=== PATIENT | male | born 1955 | race Caucasian/White ===

== ENCOUNTER → 2018-04-25 | Outpatient (CLI) | payer MEDICARE, OTHER ==
--- NOTE | 2018-04-25 11:56 | RAD ---
Left breast ultrasound, 04/25/2018: History: Nipple pain The area of clinical concern in the left retroareolar region was carefully scanned. There is a triangular-shaped area of decreased echogenicity center directly behind the nipple in a pattern most compatible with gynecomastia. This is asymmetric compared to the left, where there is a lesser degree of retroareolar hypoechoic tissue. Bilateral mammograms, 04/25/2018: 2 views of each breast were obtained in the CC and MLO projections. CAD was utilized. The breasts are predominantly fatty in nature. There is asymmetrically increased density in the left retroareolar region compared to the right. This density is flame shaped with a pattern suggesting gynecomastia. No suspicious microcalcifications are seen. A small benign-appearing lymph node type density is seen in the right lower axillary region. IMPRESSION: Retroareolar breast asymmetry most compatible with unilateral left gynecomastia. Clinical surveillance is suggested. BI-RADS 3-probably benign findings
== END | disposition home or self-care (01) ==
LOC: US 10:22
PROVIDERS: ATTEND Physician Assistant
DX: N64.4 Mastodynia (principal)
CPT/HCPCS: 76641; 77066

== ENCOUNTER → 2019-04-26 | Outpatient (CLI) | payer MEDICARE, OTHER ==
--- NOTE | 2019-04-26 14:47 | RAD ---
DATE: 04/26/2019. EXAM: DIGITAL DIAGNOSTIC BILATERAL, BREAST LEFT. HISTORY: Persistent left breast pain. Previously diagnosed with gynecomastia one year previously. COMPARISON: 04/25/2018. This study was interpreted with the benefit of Computerized Aided Detection (CAD). FINDINGS: Breast Density: SCATTERED The breast parenchyma shows scattered fibroglandular densities. Breast parenchyma level B.. Mammographically, mild gynecomastia on the left greater than right is not clearly changed. There are no suspicious masses, microcalcifications or architectural distortion. On today's sonography, a hypoechoic subareolar region is consistent with gynecomastia. There is no suspicious mass or other correlate for tenderness. BI-RADS CATEGORY: 2 BENIGN FINDING(S). RECOMMENDED FOLLOW-UP: CLIN FOLLOW UP IMAGING CLINICALLY INDICATED. PQRS compliance statement: The patient is to follow-up as clinically indicated. Mammography is a sensitive method for finding small breast cancers, but it does not detect them all and is not a substitute for careful clinical examination. A negative mammogram does not negate a clinically suspicious finding and should not result in delay in biopsying a clinically suspicious abnormality. "Our facility is accredited by the [employer] Mammography Program."
== END | disposition home or self-care (01) ==
LOC: MAMMO 12:52
PROVIDERS: ATTEND Physician Assistant
DX: N62 Hypertrophy of breast (principal)
CPT/HCPCS: 76641; 77066

== ENCOUNTER 2020-04-15 11:54 | Emergency (ER) | payer MEDICARE, OTHER ==
[~2020-04-15] VITALS: Ht 175.3 cm; Wt 84.5 kg
--- NOTE | 2020-04-15 12:58 | PHYS DOC ---
Past History Past Medical History: Bipolar, Hypertension, Other Additional Past Medical Histor: BPH Past Surgical History: Tonsillectomy, Other Additional Past Surgical Histo: KNEE; SHOULDER; UVALA REMOVED Alcohol Use: Heavy Additional Alcohol Information: AMOUNT VARIES, STATES HE DRINKS DAILY AT TIMES; NONE TODAY General Adult EDM: Chief Complaint: OTHER COMPLAINTS HPI: HPI: 64-year-old male presents with concern for memory loss. He believes that over the last 1 month he has had significant decline in his ability remember things. He denies any changes in medications. He has not started or stopped any new medications. He denies trauma or injury. He denies any significant emotional trauma. He has been feeling otherwise well except for some occasional postprandial pain which he attributes to his gallbladder. He denies fever chills. Review of Systems: Review of Systems: Constitutional: Denies fever or chills Eyes: Denies change in visual acuity HENT: Denies nasal congestion or sore throat Respiratory: Denies cough or shortness of breath Cardiovascular: Denies chest pain or edema GI: Denies abdominal pain, nausea, vomiting, bloody stools or diarrhea : Denies dysuria Musculoskeletal: Denies back pain or joint pain Integument: Denies rash Neurologic: Memory loss. Denies headache, focal weakness or sensory changes Endocrine: Denies polyuria or polydipsia Lymphatic: Denies swollen glands Psychiatric: Denies depression or anxiety Heart Score: Risk Factors: Risk Factors: DM, Current or recent (<one month) smoker, HTN, HLP, family history of CAD, obesity. Risk Scores: Score 0 - 3: 2.5% MACE over next 6 weeks - Discharge Home Score 4 - 6: 20.3% MACE over next 6 weeks - Admit for Clinical Observation Score 7 - 10: 72.7% MACE over next 6 weeks - Early Invasive Strategies Current Medications: Current Meds: Current Medications Medications (Trade) Dose Ordered Sig/Dari Start Time Stop Time Status Last Admin Dose Admin Sodium Chloride 1,000 ml @ 1,000 mls/hr 1X ONCE 04/15/20 13:00 04/15/20 13:59 Allergies: Allergies: Allergies Coded Allergies Type Severity Reaction Last Updated Verified aripiprazole Allergy Unknown 04/15/20 Yes gabapentin Allergy Unknown 04/15/20 Yes Physical Exam: PE: Constitutional: Well developed, well nourished, no acute distress, non-toxic appearance. [] HENT: Normocephalic, atraumatic, bilateral external ears normal, oropharynx moist, no oral exudates, nose normal. [] Eyes: PERRLA, EOMI, conjunctiva normal, no discharge. [] Neck: Normal range of motion, no tenderness, supple, no stridor. [] Cardiovascular: Heart rate regular rhythm, no murmur [] Lungs & Thorax: Bilateral breath sounds clear to auscultation [] Abdomen: Bowel sounds normal, soft, no tenderness, no masses, no pulsatile m asses. [] Skin: Warm, dry, no erythema, no rash. [] Back: No tenderness, no CVA tenderness. [] Extremities: No tenderness, no cyanosis, no clubbing, ROM intact, no edema. [] Neurologic: Alert and oriented X 3, normal motor function, normal sensory function, no focal deficits noted. [] Psychologic: Affect normal, judgement normal, mood normal. [] Current Patient Data: Vital Signs: Vital Signs Date Time Temp Pulse Resp B/P (MAP) Pulse Ox O2 Delivery O2 Flow Rate FiO2 04/15/20 12:00 98.9 68 18 123/92 (102) 98 Room Air EKG: EKG: [] Radiology/Procedures: Radiology/Procedures: [] Course & Med Decision Making: Course & Med Decision Making Pertinent Labs and Imaging studies reviewed. (See chart for details) Patient's labs are unremarkable. His urinalysis is negative for infection. His CT scans show some atrophy but nothing unusual for his age. I do not see any life-threatening illnesses. His urine drug screen was positive for marijuana. I asked the patient about this and he seems to use it regularly. I suspect this could have something to do with his memory. He denies that it could have anything to do with it. I have recommended that he follow-up with neurology. I will provide contact information for this. He is stable for discharge at this time [] Arcelia Disclaimer: Arcelia Disclaimer: This electronic medical record was generated, in whole or in part, using a voice recognition dictation system. Departure Departure: Impression: Primary Impression: Memory loss Disposition: 01 DC HOME SELF CARE/HOMELESS Condition: STABLE Referrals: LEO ADAMS DO (PCP) Additional Instructions: Please call Dr. Jenkins (Neurologist) for an appointment. The phone number is [phone]. You should also ask your primary care doctor for a referral to neurology. GUANAKO CAMACHO DO Apr 15, 2020 12:58
[2020-04-15] MEDS ORDERED: IV NORMAL SALINE 1,000ML 1,000 ML IV ONE (13:00)
--- NOTE | 2020-04-15 13:17 | RAD ---
Examination: CT HEAD WO CONTRAST History: recent memory loss / Comparison/Correlation: None Findings: Axial images were obtained without contrast. Atrophy is present. No intracranial hemorrhage, midline shift, or mass effect. No depressed fracture. Partial opacification of the left maxillary sinus is present. Impression: No acute process. Electronically signed by: Leonel Márquez MD (04/15/2020 1:14 PM) [facility]
[2020-04-15 13:33] LABS: BASO # 0.1 x10^3/uL (0.0-0.2); BASO % 1 % (0-3); EOS # 0.5 x10^3/uL (0.0-0.7); EOS % 5 % (0-3); HEMOGLOBIN 15.4 g/dL (13.0-17.5); LYMPH # 3.2 x10^3/uL (1.0-4.8); LYMPH % 31 % (24-48); MEAN CORPUSCULAR HEMOGLOBIN 33 pg (25-35); MEAN CORPUSCULAR HGB CONC 34 g/dL (31-37); MEAN CORPUSCULAR VOLUME 99 fL (79-100); MONO # 0.8 x10^3/uL (0.0-1.1); MONO % 7 % (0-9); NEUT # 5.7 x10^3uL (1.8-7.7); NEUT % 56 % (31-73); PLATELET COUNT 307 x10^3/uL (140-400); RED BLOOD COUNT 4.67 x10^6/uL (4.30-5.70); RED CELL DISTRIBUTION WIDTH 14.2 % (11.5-14.5); WHITE BLOOD COUNT 10.2 x10^3/uL (4.0-11.0)
[2020-04-15 13:46] LABS: CALCIUM 8.9 mg/dL (8.5-10.1); CREATININE 0.9 mg/dL (0.7-1.3); GFR 84.4
[2020-04-15 13:55] LABS: ALBUMIN 3.8 g/dL (3.4-5.0); TOTAL BILIRUBIN 0.4 mg/dL (0.2-1.0); TOTAL PROTEIN 7.5 g/dL (6.4-8.2)
[2020-04-15 15:00] LABS: BARBITURATES NEG (NEG); BENZODIAZEPINES NEG (NEG); CANNABINOIDS POS (NEG); COCAINE NEG (NEG); METHADONE NEG (NEG); OPIATES NEG (NEG); PHENCYCLIDINE NEG (NEG)
[2020-04-15 15:01] LABS: AMPHETAMINE/METHAMPHETAMINE NEG (NEG)
[2020-04-15 15:02] LABS: COLOR,URINE COLORLESS
[2020-04-15 15:03] LABS: BACTERIA,URINE 0 /HPF (0-FEW); BILIRUBIN,URINE NEG (NEG); CLARITY,URINE CLEAR; GLUCOSE,URINE NEG (NEG); NITRITE,URINE NEG (NEG); RBC,URINE 0 /HPF (0-2); UROBILINOGEN,URINE 0.2 mg/dL (0.2 mg/dL); WBC,URINE 0 /HPF (0-4)
[2020-04-15 15:22] VITALS: BP 106/89
== END 2020-04-15 15:27 | disposition home or self-care (01) ==
LOC: ER 11:54
DX: R41.3 Other amnesia (principal); I10 Essential (primary) hypertension; F31.9 Bipolar disorder, unspecified; F10.20 Alcohol dependence, uncomplicated; Z88.8 Allergy status to other drugs, medicaments and biological substances; Y90.0 Blood alcohol level of less than 20 mg/100 ml
CPT/HCPCS: 36415; 70450; 80053; 80307; 81001; 85025; 96360; 96361; 99285; J7030

== ENCOUNTER → 2020-04-19 | Outpatient (CLI) | payer MEDICARE, OTHER ==
[2020-04-15 15:22] VITALS: BP 106/89
--- NOTE | 2020-04-19 10:40 | RAD ---
Carotid doppler ultrasound History: Slurred speech, memory loss Multiple grayscale, color, and duplex spectral analysis waveform sonographic images were acquired of the carotid, subclavian, and vertebral arteries. Comparison: None Findings: RIGHT: PSV cm/sec EDV cm/sec Common carotid artery 79 22 Maximal internal carotid artery 71 24 External carotid artery 76 Vertebral artery 47 ICA/CCA ratio 0.9 LEFT: PSV cm/sec EDV cm/sec Common carotid artery 96 22 Maximum internal carotid artery 83 29 External carotid artery 88 Vertebral artery 38 ICA/CCA ratio 0.86 Velocities used to determine stenosis are known to correlate with NASCET angiographic criteria. There is antegrade flow in the bilateral vertebral arteries. There is minimal plaque of the bilateral carotid bulbs and proximal internal carotid arteries. Impression: 1. There is no evidence of a hemodynamically significant stenosis. There is mild bilateral plaque. Electronically signed by: Dylan Cruz MD (04/19/2020 10:37 AM) [facility]
== END ==
LOC: US 09:05
PROVIDERS: ATTEND Internal Medicine
DX: I65.23 Occlusion and stenosis of bilateral carotid arteries (principal); R41.3 Other amnesia; R47.81 Slurred speech
CPT/HCPCS: 93880

== ENCOUNTER 2020-05-17 19:45 | Emergency (ER) | payer MEDICARE, OTHER ==
[~2020-05-17] VITALS: Ht 185.4 cm; Wt 79.5 kg
[2020-05-17] MEDS ORDERED: MVI, ADULT NO.4 WITH VIT K 10 ML, FOLIC ACID INJ 1 MG, THIAMINE INJ 100 MG in IV NORMAL... IV ONE (20:30)
[2020-05-17 20:41] LABS: BASO # 0.1 x10^3/uL (0.0-0.2); BASO % 1 % (0-3); EOS # 0.3 x10^3/uL (0.0-0.7); EOS % 3 % (0-3); HEMATOCRIT 45.3 % (39.0-53.0); LYMPH # 2.7 x10^3/uL (1.0-4.8); LYMPH % 24 % (24-48); MEAN CORPUSCULAR HEMOGLOBIN 33 pg (25-35); MEAN CORPUSCULAR HGB CONC 33 g/dL (31-37); MEAN CORPUSCULAR VOLUME 99 fL (79-100); MONO # 0.9 x10^3/uL (0.0-1.1); MONO % 8 % (0-9); NEUT # 7.4 x10^3uL (1.8-7.7); NEUT % 65 % (31-73); PLATELET COUNT 306 x10^3/uL (140-400); RED BLOOD COUNT 4.56 x10^6/uL (4.30-5.70); RED CELL DISTRIBUTION WIDTH 13.2 % (11.5-14.5); WHITE BLOOD COUNT 11.4 x10^3/uL (4.0-11.0)
[2020-05-17 20:54] LABS: ALBUMIN 3.9 g/dL (3.4-5.0); CALCIUM 9.1 mg/dL (8.5-10.1); TOTAL PROTEIN 7.7 g/dL (6.4-8.2)
[2020-05-17 20:55] LABS: CREATININE 0.9 mg/dL (0.7-1.3); GFR 84.4; POTASSIUM 3.7 mmol/L (3.5-5.1); TOTAL BILIRUBIN 0.5 mg/dL (0.2-1.0)
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
[2020-05-17 22:30] VITALS: BP 140/70
[2020-05-17 22:40] LABS: BARBITURATES NEG (NEG); BENZODIAZEPINES NEG (NEG); CANNABINOIDS POS (NEG); COCAINE NEG (NEG); METHADONE NEG (NEG); OPIATES NEG (NEG); PHENCYCLIDINE NEG (NEG)
[2020-05-17 22:51] LABS: AMPHETAMINE/METHAMPHETAMINE NEG (NEG)
[2020-05-17 23:27] LABS: BILIRUBIN,URINE NEG (NEG); CLARITY,URINE HAZY; COLOR,URINE YELLOW; GLUCOSE,URINE NEG (NEG); NITRITE,URINE NEG (NEG); RBC,URINE OCC /HPF (0-2); UROBILINOGEN,URINE 0.2 mg/dL (0.2 mg/dL)
[2020-05-17 23:28] LABS: BACTERIA,URINE MOD /HPF (0-FEW); SQUAMOUS EPITHELIAL CELL,UR FEW /LPF
== END 2020-05-17 23:06 | disposition home or self-care (01) ==
LOC: ER 19:45
DX: F12.10 Cannabis abuse, uncomplicated (principal); M25.512 Pain in left shoulder; M54.2 Cervicalgia; F20.9 Schizophrenia, unspecified; F31.9 Bipolar disorder, unspecified; Z88.8 Allergy status to other drugs, medicaments and biological substances; V89.2XXA Person injured in unspecified motor-vehicle accident, traffic, initial encounter; Y93.I9 Activity, other involving external motion; Y92.488 Other paved roadways as the place of occurrence of the external cause; Y99.8 Other external cause status
CPT/HCPCS: 36415; 70450; 72125; 73030; 80053; 80307; 81001; 85025; 87077; 87086; 96365; 99285; G0480; J7030

== ENCOUNTER 2020-05-18 09:49 | Emergency (ER) | payer MEDICARE, OTHER ==
[~2020-05-18] VITALS: Ht 175.3 cm; Wt 79.9 kg
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
[2020-05-18 10:37] VITALS: BP 168/84
== END 2020-05-18 10:50 | disposition home or self-care (01) ==
LOC: ER 09:49
DX: S80.02XA Contusion of left knee, initial encounter (principal); I10 Essential (primary) hypertension; Z88.8 Allergy status to other drugs, medicaments and biological substances; V89.2XXA Person injured in unspecified motor-vehicle accident, traffic, initial encounter; Y93.89 Activity, other specified; Y92.89 Other specified places as the place of occurrence of the external cause; Y99.8 Other external cause status
CPT/HCPCS: 99281

== ENCOUNTER 2020-05-19 04:41 | Emergency (ER) | payer MEDICARE, OTHER ==
[~2020-05-19] VITALS: Ht 175.3 cm; Wt 81.3 kg
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
[2020-05-19] MEDS ORDERED: IV NORMAL SALINE 1,000ML 1,000 ML IV ONE (05:15)
--- NOTE | 2020-05-19 05:19 | EKG ---
[address] [address] Test Date: 2020-05-19 Test Time: 05:10:42 Pat Name: RUPAL BURKETT Department: Room: Gender: M Veneer Sample Maker: 2G : [id number] Requested By: GUANAKO CAMACHO Order Number: [id number] Reading MD: Measurements Intervals [place] Rate: 78 P: 66 WV: 154 QRS: -67 QRSD: 114 T: 67 QT: 386 QTc: 444 Interpretive Statements SINUS RHYTHM ABNORMAL LEFT AXIS DEVIATION LEFT ANTERIOR FASCICULAR BLOCK T ABNORMALITY IN HIGH LATERAL LEADS ABNORMAL ECG RI6.02 No previous ECG available for comparison
[2020-05-19 05:56] LABS: CALCIUM 9.5 mg/dL (8.5-10.1); CREATININE 1.1 mg/dL (0.7-1.3); POTASSIUM 3.5 mmol/L (3.5-5.1)
[2020-05-19 06:02] LABS: ALBUMIN 3.7 g/dL (3.4-5.0); TOTAL BILIRUBIN 0.3 mg/dL (0.2-1.0); TOTAL PROTEIN 7.3 g/dL (6.4-8.2)
[2020-05-19 06:05] LABS: BASO # 0.1 x10^3/uL (0.0-0.2); BASO % 1 % (0-3); EOS % 0 % (0-3); HEMOGLOBIN 14.8 g/dL (13.0-17.5); LYMPH # 1.2 x10^3/uL (1.0-4.8); LYMPH % 9 % (24-48); MEAN CORPUSCULAR HEMOGLOBIN 33 pg (25-35); MEAN CORPUSCULAR HGB CONC 33 g/dL (31-37); MEAN CORPUSCULAR VOLUME 99 fL (79-100); MONO # 0.7 x10^3/uL (0.0-1.1); MONO % 5 % (0-9); NEUT # 12.2 x10^3uL (1.8-7.7); NEUT % 86 % (31-73); PLATELET COUNT 305 x10^3/uL (140-400); RED BLOOD COUNT 4.54 x10^6/uL (4.30-5.70); RED CELL DISTRIBUTION WIDTH 13.1 % (11.5-14.5); WHITE BLOOD COUNT 14.3 x10^3/uL (4.0-11.0)
[2020-05-19 06:32] LABS: ACETAMIN < 2.0 mcg/mL (10-30); SALIC 3.8 mg/dL (2.8-20.0)
[2020-05-19 06:33] LABS: ETHANOL < 10 mg/dL (0-10)
[2020-05-19] MEDS ORDERED: diphenhydrAMINE 50 MG/ML VIAL IM ONE (08:15)
[2020-05-19] MEDS ORDERED: OLANZapine IM 10 MG VIAL. IM ONE (08:15)
[2020-05-19] MEDS ORDERED: HALOPERIDOL LACT 5 MG/ML VIAL. IVP ONE ×2 (09:45→13:45)
[2020-05-19] MEDS ORDERED: diphenhydrAMINE 50 MG/ML VIAL ONE (13:44)
[2020-05-19] MEDS ORDERED: diphenhydrAMINE 50 MG/ML VIAL IVP ONE (13:45)
[2020-05-19 18:27] LABS: BARBITURATES NEG (NEG); BENZODIAZEPINES NEG (NEG); CANNABINOIDS POS (NEG); COCAINE NEG (NEG); METHADONE NEG (NEG); OPIATES NEG (NEG); PHENCYCLIDINE NEG (NEG)
[2020-05-19 18:29] LABS: AMPHETAMINE/METHAMPHETAMINE NEG (NEG)
[2020-05-19 18:35] LABS: BILIRUBIN,URINE SMALL (NEG); CLARITY,URINE HAZY; COLOR,URINE AMBER; GLUCOSE,URINE NEG (NEG)
[2020-05-19 18:36] LABS: NITRITE,URINE POS (NEG); UROBILINOGEN,URINE 0.2 mg/dL (0.2 mg/dL)
[2020-05-19 18:41] LABS: BACTERIA,URINE MOD /HPF (0-FEW); SQUAMOUS EPITHELIAL CELL,UR OCC /LPF
[2020-05-19] MEDS ORDERED: HALOPERIDOL LACT 5 MG/ML VIAL. IM ONE (19:30)
[2020-05-19] MEDS ORDERED: cefTRIAXone IM 1 GM VIAL IM ONE (21:00)
[2020-05-20] MEDS ORDERED: HALOPERIDOL LACT 5 MG/ML VIAL. IM ONE ×2 (06:15→17:15)
[2020-05-20] MEDS ORDERED: LORazepam 1 MG TABLET PO ONE ×3 (11:45→18:00)
[2020-05-20] MEDS ORDERED: OLANZapine 2.5 MG TABLET PO ONE (11:45)
[2020-05-20] MEDS ORDERED: ACETAMINOPHEN 500 MG TABLET PO ONE (12:00)
[2020-05-20] MEDS ORDERED: HALOPERIDOL LACT 5 MG/ML VIAL. ONE (17:10)
[2020-05-20] MEDS ORDERED: cefTRIAXone IM 1 GM VIAL IM ONE (17:30)
[2020-05-20] MEDS ORDERED: CEPHALEXIN 250 MG CAPSULE PO ONE (17:45)
[2020-05-20] MEDS ORDERED: CEPHALEXIN 250 MG CAPSULE PO SCH (17:45)
[2020-05-20] MEDS ORDERED: hydrOXYzine HCL 25 MG TABLET PO ONE (22:45)
[2020-05-21] MEDS ORDERED: HALOPERIDOL LACT 5 MG/ML VIAL. IM ONE ×2 (02:45→07:45)
[2020-05-21] MEDS ORDERED: LORazepam 1 MG TABLET PO ONE ×3 (02:45→17:45)
[2020-05-21] MEDS ORDERED: OLANZapine 2.5 MG TABLET PO ONE (15:45)
[2020-05-22] MEDS ORDERED: HALOPERIDOL 5 MG TABLET PO ONE (01:15)
[2020-05-22] MEDS ORDERED: diphenhydrAMINE HCL 25 MG CAPSULE PO ONE (01:15)
[2020-05-22] MEDS ORDERED: LORazepam 1 MG TABLET PO ONE (02:30)
[2020-05-22] MEDS ORDERED: FOSFOMYCIN TROMETHAMINE 3 GM PACKET PO ONE (07:00)
[2020-05-22 07:46] VITALS: BP 120/80
== END 2020-05-22 11:26 ==
LOC: ER 04:41
DX: T69.8XXA Other specified effects of reduced temperature, initial encounter (principal); N30.01 Acute cystitis with hematuria; Z20.818 Contact with and (suspected) exposure to other bacterial communicable diseases; F10.229 Alcohol dependence with intoxication, unspecified; I10 Essential (primary) hypertension; Z90.89 Acquired absence of other organs; Z98.890 Other specified postprocedural states; Z79.899 Other long term (current) drug therapy; X58.XXXA Exposure to other specified factors, initial encounter; Y93.89 Activity, other specified; Y92.89 Other specified places as the place of occurrence of the external cause; Y99.8 Other external cause status
CPT/HCPCS: 36415; 80053; 80307; 80329; 81001; 83735; 84484; 85025; 87077; 87086; 87426; 93005; 96361; 96372; 96374; 96375; 99285; G0480; J0696; J1200; J1630; J2060; J7030; Q0163; U0003

== ENCOUNTER 2020-08-14 23:06 | Emergency (ER) | payer MEDICARE, OTHER ==
[~2020-08-14] VITALS: Ht 175.3 cm; Wt 79.0 kg
--- NOTE | 2020-08-14 23:27 | PHYS DOC ---
Past History Past Medical History: Hypertension Additional Past Medical Histor: BPH Past Surgical History: Tonsillectomy, Other Additional Past Surgical Histo: LEFT KNEE Alcohol Use: Sober Adult General Chief Complaint Chief Complaint: ANXIETY/PANIC ATTACK HPI HPI Patient is a 65-year-old male who presents with a chief complaint of anxiety attack. States he was at home watching [place] retractors on TV just before coming in to the ED about an hour ago and started getting angry thinking about the stressors in his life and then started cussing at the television. States he started having an anxiety attack, feeling scared and anxious like he wanted to just start running. States that he has anxiety attacks frequently and does have Klonopin at home but forgot to take it. Denies any recent travel, illnesses, fevers, chest pain, shortness of breath, abdominal pain, nausea, vomiting. Denies any known ill contacts, Covid/flu symptoms. States he is eating and drinking normally for him. States he is taking all of his medications as prescribed. States he smokes an occasional marijuana but does not do any other drugs. Review of Systems Review of Systems Review of systems otherwise unremarkable except noted in HPI Allergies Allergies Allergies Coded Allergies Type Severity Reaction Last Updated Verified aripiprazole Allergy Unknown 04/15/20 Yes gabapentin Allergy Unknown 04/15/20 Yes Physical Exam Physical Exam Constitutional: Well developed, well nourished, no acute distress, non-toxic appearance. [] HENT: Normocephalic, atraumatic, oropharynx moist, no oral exudates, Eyes: conjunctiva normal, no discharge. [] Neck: Normal range of motion, Cardiovascular:Heart rate regular rhythm, no murmur [] Lungs & Thorax: Bilateral breath sounds clear to auscultation [] Abdomen: soft, no tenderness, Skin: Warm, dry, no erythema, no rash. [] Neurologic: Alert and oriented X 3, normal motor function, normal sensory function, no focal deficits noted. [] Psychologic: Patient cooperative but does appear anxious. States his anxiety attack is getting better after arriving to the emergency department. Denies SI, HI, hallucinations. EKG EKG Rate of 96, QRS of 118, QTc of 441, no new STEMI. EKG abnormal however the with probable old damage. [] Radiology/Procedures Radiology/Procedures [] Heart Score Risk Factors: Risk Factors: DM, Current or recent (<one month) smoker, HTN, HLP, family history of CAD, obesity. Risk Scores: Risk Factors: DM, Current or recent (<one month) smoker, HTN, HLP, family history of CAD, obesity. Course & Med Decision Making Course & Med Decision Making Patient is a 65-year-old male who presents with a chief complaint of anxiety attack Vital signs not concerning. Physical exam noted above. EKG noted above, which is abnormal with most likely previous damage. Patient states that approximately 10 years ago he had some stents placed but has had no trouble since then. Denies any lightheadedness, fatigue, chest pain, shortness of breath, bilateral arm pain, neck pain, abdominal pain, nausea, vomiting. Denies any recent dyspnea on exertion, orthopnea, PND or edema. States that up until his anxiety attack he felt absolutely normal. Given home dose of Klonopin. On reassessment patient stated he was feeling much better, and anxiety tach had resolved. Denies any new symptoms and was very appreciative. Stated he was gilbert dy to be discharged home. Offered observation in the emergency department for repeat EKG and troponin, but patient stated he felt fine and was ready to go home and go to bed. Advised that if he indeed was having some cardiac issues this could lead to significant morbidity and mortality. Patient was polite, but stated he was ready to go home and was ago stay in the emergency department any longer as he was tired. Politely asked for us to call him a cab. Discussed taking all his medications at home as prescribed. Advised to follow- up first thing tomorrow with his primary care physician to discuss his ED visit and need for follow-up visit to discuss continued evaluation and treatment of anxiety. Advised to come back to the ED immediately with any new or concerning symptoms. Patient very grateful, verbalized understanding and agreed with plan of discharge. [] Dragon Disclaimer Dragon Disclaimer This electronic medical record was generated, in whole or in part, using a voice recognition dictation system. Departure Departure: Impression: Primary Impression: Anxiety attack Disposition: 01 DC HOME SELF CARE/HOMELESS Condition: GOOD Referrals: LEO ADAMS DO (PCP) Patient Instructions: Anxiety and Panic Attacks Additional Instructions: Please read all the attached information on your diagnosis. Please continue to take all your medications as prescribed. Please call your primary care physician first thing in the morning to update on ED visit and set up a follow- up visit to discuss continued evaluation and treatment of anxiety. Please come back to the ED with new or concerning symptoms. SOLANGE CLEMENS MD Aug 14, 2020 23:27
[2020-08-14] MEDS ORDERED: clonazePAM 1 MG TABLET PO ONE (23:45)
[2020-08-14 23:59] VITALS: BP 117/86
--- NOTE | 2020-08-15 06:29 | EKG ---
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
== END 2020-08-15 00:14 | disposition home or self-care (01) ==
LOC: ER 23:06
DX: F41.9 Anxiety disorder, unspecified (principal); I10 Essential (primary) hypertension; Z88.8 Allergy status to other drugs, medicaments and biological substances
CPT/HCPCS: 93005; 99283

== ENCOUNTER 2020-08-15 04:06 | Emergency (ER) | payer OTHER, MEDICARE ==
[~2020-08-15] VITALS: Ht 175.3 cm; Wt 79.0 kg
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
[2020-08-15] MEDS ORDERED: ACETAMINOPHEN 500 MG TABLET PO ONE ×2 (04:45→05:28)
[2020-08-15 05:05] LABS: BASO # 0.1 x10^3/uL (0.0-0.2); BASO % 1 % (0-3); EOS # 0.1 x10^3/uL (0.0-0.7); EOS % 0 % (0-3); HEMATOCRIT 42.2 % (39.0-53.0); HEMOGLOBIN 14.1 g/dL (13.0-17.5); LYMPH # 1.1 x10^3/uL (1.0-4.8); LYMPH % 8 % (24-48); MEAN CORPUSCULAR HEMOGLOBIN 32 pg (25-35); MEAN CORPUSCULAR HGB CONC 34 g/dL (31-37); MEAN CORPUSCULAR VOLUME 96 fL (79-100); MONO # 0.8 x10^3/uL (0.0-1.1); MONO % 6 % (0-9); NEUT # 12.5 x10^3uL (1.8-7.7); NEUT % 86 % (31-73); PLATELET COUNT 280 x10^3/uL (140-400); RED BLOOD COUNT 4.38 x10^6/uL (4.30-5.70); RED CELL DISTRIBUTION WIDTH 14.4 % (11.5-14.5); WHITE BLOOD COUNT 14.6 x10^3/uL (4.0-11.0)
[2020-08-15 05:11] LABS: CALCIUM 8.7 mg/dL (8.5-10.1); CREATININE 0.9 mg/dL (0.7-1.3); GFR 84.2
[2020-08-15 05:16] LABS: BARBITURATES NEG (NEG); BENZODIAZEPINES NEG (NEG); CANNABINOIDS POS (NEG); COCAINE NEG (NEG); METHADONE NEG (NEG); OPIATES NEG (NEG); PHENCYCLIDINE NEG (NEG)
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
[2020-08-15 05:21] LABS: ALBUMIN 3.6 g/dL (3.4-5.0); ALBUMIN/GLOBULIN RATIO 1.1 (1.0-1.7); SALIC < 2.8 mg/dL (2.8-20.0); TOTAL BILIRUBIN 0.3 mg/dL (0.2-1.0); TOTAL PROTEIN 6.9 g/dL (6.4-8.2)
[2020-08-15 05:22] LABS: ACETAMIN < 2.0 mcg/mL (10-30); AMPHETAMINE/METHAMPHETAMINE NEG (NEG)
[2020-08-15 05:27] LABS: BILIRUBIN,URINE NEG (NEG); CLARITY,URINE CLEAR; COLOR,URINE AMBER; GLUCOSE,URINE NEG (NEG); NITRITE,URINE NEG (NEG); UROBILINOGEN,URINE 0.2 mg/dL (0.2 mg/dL)
[2020-08-15 05:28] LABS: BACTERIA,URINE 0 /HPF (0-FEW); WBC,URINE 0 /HPF (0-4)
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
--- NOTE | 2020-08-15 05:38 | EKG ---
[address] [address] Test Date: 2020-08-15 Test Time: 05:25:51 Pat Name: RUPAL BURKETT Department: Room: Gender: M Automation Controls Expert: CHERYL : 1955 Requested By: SOLANGE CLEMENS Order Number: [id number] Reading MD: Measurements Intervals [place] Rate: 90 P: 62 SD: 148 QRS: -62 QRSD: 112 T: 54 QT: 358 QTc: 442 Interpretive Statements SINUS RHYTHM ABNORMAL LEFT AXIS DEVIATION R-S TRANSITION ZONE IN V LEADS DISPLACED TO THE LEFT LEFT ANTERIOR FASCICULAR BLOCK ABNORMAL ECG RI6.02 No previous ECG available for comparison
[2020-08-15 06:00] VITALS: BP 106/60
[2020-08-15] MEDS ORDERED: NALOXONE 0.4 MG/ML VIAL. IV ONE (06:00)
[2020-08-15] MEDS ORDERED: FLUMAZENIL 0.5 MG/5 ML VIAL. IV ONE (06:30)
== END 2020-08-15 10:38 | disposition home or self-care (01) ==
LOC: ER 04:06
DX: G89.11 Acute pain due to trauma (principal); F41.9 Anxiety disorder, unspecified; F32.9 Major depressive disorder, single episode, unspecified; F20.9 Schizophrenia, unspecified; Z98.890 Other specified postprocedural states; V49.88XA Car occupant (driver) (passenger) injured in other specified transport accidents, initial encounter; Y93.89 Activity, other specified; Y92.89 Other specified places as the place of occurrence of the external cause; Y99.8 Other external cause status
CPT/HCPCS: 36415; 51702; 70450; 72125; 73030; 80053; 80307; 80329; 81001; 84484; 85025; 93005; 96374; 99285; G0480; J2310

== ENCOUNTER 2020-09-15 12:03 | Emergency (ER) | payer MEDICARE, OTHER ==
[~2020-09-15] VITALS: Ht 175.3 cm; Wt 79.0 kg
[2020-09-15 12:05] VITALS: BP 140/92
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
[2020-09-15 12:45] LABS: BASO # 0.1 x10^3/uL (0.0-0.2); BASO % 1 % (0-3); EOS # 0.1 x10^3/uL (0.0-0.7); EOS % 2 % (0-3); HEMATOCRIT 42.2 % (39.0-53.0); HEMOGLOBIN 14.3 g/dL (13.0-17.5); LYMPH # 2.1 x10^3/uL (1.0-4.8); LYMPH % 23 % (24-48); MEAN CORPUSCULAR HEMOGLOBIN 32 pg (25-35); MEAN CORPUSCULAR HGB CONC 34 g/dL (31-37); MEAN CORPUSCULAR VOLUME 94 fL (79-100); MONO # 0.7 x10^3/uL (0.0-1.1); MONO % 8 % (0-9); NEUT % 67 % (31-73); PLATELET COUNT 219 x10^3/uL (140-400); RED BLOOD COUNT 4.48 x10^6/uL (4.30-5.70); WHITE BLOOD COUNT 8.9 x10^3/uL (4.0-11.0)
[2020-09-15 12:53] LABS: CALCIUM 8.7 mg/dL (8.5-10.1); CREATININE 0.8 mg/dL (0.7-1.3); GFR 96.4; POTASSIUM 3.9 mmol/L (3.5-5.1)
[2020-09-15 12:59] LABS: ALBUMIN 3.5 g/dL (3.4-5.0); TOTAL BILIRUBIN 0.3 mg/dL (0.2-1.0); TOTAL PROTEIN 7.1 g/dL (6.4-8.2)
[2020-09-15 13:04] LABS: ACETAMIN < 2.0 mcg/mL (10-30); ETHANOL < 10 mg/dL (0-10); SALIC < 2.8 mg/dL (2.8-20.0)
[2020-09-15] MEDS ORDERED: DIVALPROEX SODIUM 125 MG TABLET.DR. PO ONE (13:45)
[2020-09-15 13:58] LABS: BARBITURATES NEG (NEG); BENZODIAZEPINES NEG (NEG); CANNABINOIDS NEG (NEG); COCAINE NEG (NEG); METHADONE NEG (NEG); OPIATES NEG (NEG); PHENCYCLIDINE NEG (NEG)
[2020-09-15 14:01] LABS: BACTERIA,URINE 0 /HPF (0-FEW); BILIRUBIN,URINE NEG (NEG); CLARITY,URINE CLEAR; COLOR,URINE YELLOW; GLUCOSE,URINE NEG (NEG); NITRITE,URINE NEG (NEG); SQUAMOUS EPITHELIAL CELL,UR FEW /LPF; UROBILINOGEN,URINE 0.2 mg/dL (0.2 mg/dL)
[2020-09-15 14:12] LABS: AMPHETAMINE/METHAMPHETAMINE NEG (NEG)
== END 2020-09-15 14:01 | disposition home or self-care (01) ==
LOC: ER 12:03
DX: F32.9 Major depressive disorder, single episode, unspecified (principal); F41.9 Anxiety disorder, unspecified; F20.9 Schizophrenia, unspecified; F17.200 Nicotine dependence, unspecified, uncomplicated; F10.20 Alcohol dependence, uncomplicated; Y90.9 Presence of alcohol in blood, level not specified; Z88.8 Allergy status to other drugs, medicaments and biological substances
CPT/HCPCS: 36415; 80053; 80307; 80329; 81001; 85025; 99284; G0480

== ENCOUNTER 2020-09-17 10:10 | Emergency (ER) | payer MEDICARE ==
[~2020-09-17] VITALS: Ht 175.3 cm; Wt 80.2 kg
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
[2020-09-17 10:57] LABS: BASO % 1 % (0-3); EOS # 0.1 x10^3/uL (0.0-0.7); EOS % 2 % (0-3); HEMATOCRIT 41.2 % (39.0-53.0); HEMOGLOBIN 13.9 g/dL (13.0-17.5); LYMPH # 1.9 x10^3/uL (1.0-4.8); LYMPH % 24 % (24-48); MEAN CORPUSCULAR HEMOGLOBIN 32 pg (25-35); MEAN CORPUSCULAR HGB CONC 34 g/dL (31-37); MEAN CORPUSCULAR VOLUME 95 fL (79-100); MONO # 0.5 x10^3/uL (0.0-1.1); MONO % 7 % (0-9); NEUT # 5.1 x10^3uL (1.8-7.7); NEUT % 67 % (31-73); PLATELET COUNT 237 x10^3/uL (140-400); RED BLOOD COUNT 4.35 x10^6/uL (4.30-5.70); RED CELL DISTRIBUTION WIDTH 14.1 % (11.5-14.5); WHITE BLOOD COUNT 7.7 x10^3/uL (4.0-11.0)
[2020-09-17 11:12] LABS: CALCIUM 8.4 mg/dL (8.5-10.1); CREATININE 0.8 mg/dL (0.7-1.3); GFR 96.4; POTASSIUM 3.5 mmol/L (3.5-5.1)
[2020-09-17 11:18] LABS: ACETAMIN < 2.0 mcg/mL (10-30); ETHANOL < 10 mg/dL (0-10); SALIC < 2.8 mg/dL (2.8-20.0)
[2020-09-17 11:26] LABS: ALBUMIN 3.3 g/dL (3.4-5.0); ALBUMIN/GLOBULIN RATIO 0.9 (1.0-1.7); TOTAL BILIRUBIN 0.3 mg/dL (0.2-1.0); TOTAL PROTEIN 6.9 g/dL (6.4-8.2)
[2020-09-17] MEDS ORDERED: LORazepam 1 MG TABLET PO PRN (12:15)
--- NOTE | 2020-09-17 12:15 | EKG ---
[address] [address] Test Date: 2020-09-17 Test Time: 10:24:37 Pat Name: RUPAL BURKETT Department: Room: Gender: M Dirt Contractor: ANAHY : 1955 Requested By: ENDER CAMP Order Number: [id number] Reading MD: Measurements Intervals [place] Rate: 80 P: 48 NM: 146 QRS: -62 QRSD: 112 T: 69 QT: 360 QTc: 419 Interpretive Statements SINUS RHYTHM ABNORMAL LEFT AXIS DEVIATION R-S TRANSITION ZONE IN V LEADS DISPLACED TO THE LEFT LEFT ANTERIOR FASCICULAR BLOCK T ABNORMALITY IN HIGH LATERAL LEADS ABNORMAL ECG RI6.02 No previous ECG available for comparison
[2020-09-17 12:26] LABS: BARBITURATES NEG (NEG); BENZODIAZEPINES NEG (NEG); CANNABINOIDS NEG (NEG); COCAINE NEG (NEG); METHADONE NEG (NEG); OPIATES NEG (NEG); PHENCYCLIDINE NEG (NEG)
[2020-09-17 12:31] LABS: BACTERIA,URINE 0 /HPF (0-FEW); BILIRUBIN,URINE NEG (NEG); CLARITY,URINE CLEAR; COLOR,URINE YELLOW; GLUCOSE,URINE NEG (NEG); NITRITE,URINE NEG (NEG); RBC,URINE OCC /HPF (0-2); SQUAMOUS EPITHELIAL CELL,UR OCC /LPF; UROBILINOGEN,URINE 0.2 mg/dL (0.2 mg/dL); WBC,URINE OCC /HPF (0-4)
[2020-09-17 12:47] LABS: AMPHETAMINE/METHAMPHETAMINE NEG (NEG)
[2020-09-17 15:21] VITALS: BP 128/79
== END 2020-09-17 15:25 | disposition home or self-care (01) ==
LOC: ER 10:10
DX: F20.0 Paranoid schizophrenia (principal); F41.9 Anxiety disorder, unspecified; F32.9 Major depressive disorder, single episode, unspecified; F20.9 Schizophrenia, unspecified; Z88.8 Allergy status to other drugs, medicaments and biological substances
CPT/HCPCS: 36415; 80053; 80307; 81001; 83605; 84484; 85025; 93005; 99284; G0480; 80329

== ENCOUNTER 2020-09-19 20:58 | Emergency (ER) | payer MEDICARE ==
[~2020-09-19] VITALS: Ht 175.3 cm; Wt 80.2 kg
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
[2020-09-19 22:08] LABS: BASO % 1 % (0-3); EOS # 0.2 x10^3/uL (0.0-0.7); EOS % 2 % (0-3); HEMATOCRIT 39.4 % (39.0-53.0); HEMOGLOBIN 13.3 g/dL (13.0-17.5); LYMPH # 3.1 x10^3/uL (1.0-4.8); LYMPH % 36 % (24-48); MEAN CORPUSCULAR HEMOGLOBIN 32 pg (25-35); MEAN CORPUSCULAR HGB CONC 34 g/dL (31-37); MEAN CORPUSCULAR VOLUME 95 fL (79-100); MONO # 0.7 x10^3/uL (0.0-1.1); MONO % 8 % (0-9); NEUT # 4.6 x10^3uL (1.8-7.7); NEUT % 53 % (31-73); PLATELET COUNT 257 x10^3/uL (140-400); RED BLOOD COUNT 4.15 x10^6/uL (4.30-5.70); RED CELL DISTRIBUTION WIDTH 13.9 % (11.5-14.5); WHITE BLOOD COUNT 8.6 x10^3/uL (4.0-11.0)
[2020-09-19 22:09] LABS: CALCIUM 8.7 mg/dL (8.5-10.1); CREATININE 0.9 mg/dL (0.7-1.3); GFR 84.2; POTASSIUM 3.6 mmol/L (3.5-5.1)
[2020-09-19 22:16] LABS: ACETAMIN < 2.0 mcg/mL (10-30); ALBUMIN 3.3 g/dL (3.4-5.0); ALBUMIN/GLOBULIN RATIO 0.9 (1.0-1.7); TOTAL BILIRUBIN 0.2 mg/dL (0.2-1.0); TOTAL PROTEIN 6.9 g/dL (6.4-8.2)
[2020-09-19 22:17] LABS: ETHANOL < 10 mg/dL (0-10); SALIC < 2.8 mg/dL (2.8-20.0)
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
[2020-09-19 23:20] VITALS: BP 142/80
== END 2020-09-19 23:21 | disposition home or self-care (01) ==
LOC: ER 20:58
DX: Z00.8 Encounter for other general examination (principal); F22 Delusional disorders; F20.9 Schizophrenia, unspecified; F41.9 Anxiety disorder, unspecified; F32.9 Major depressive disorder, single episode, unspecified; Z88.8 Allergy status to other drugs, medicaments and biological substances
CPT/HCPCS: 36415; 70450; 80053; 80329; 82140; 85025; 99284; G0480

== ENCOUNTER 2020-09-25 23:04 | Emergency (ER) | payer MEDICARE ==
[~2020-09-25] VITALS: Ht 175.3 cm; Wt 80.2 kg
[2020-09-25 23:11] VITALS: BP 122/78
--- NOTE | 2020-09-25 23:23 | PHYS DOC ---
Past History Past Medical History: Anxiety, Depression, Schizophrenia Additional Past Medical Histor: BPH Past Surgical History: No Surgical History Additional Past Surgical Histo: LEFT KNEE Alcohol Use: None General Adult EDM: Chief Complaint: PSYCH EVALUATION HPI: HPI: :'". I am having bad thoughts... all this stuff in [place]..got me worried.. I worried someone is after me... Patient is a 65 year old male who presents with above hx and compliant paranoid thoughts. Patient has a past medical history for schizophrenia and bipolar and PTSD. Patient currently on Depakote for mood modification. Patient has fears that his neighbors are in the mall for him and they can come and get him. Patient reports seeing where things on the TV. Patient has been taking his psychiatric meds as directed. Denies any travel or specific ill contacts. Patient denies any illicit drug use. Denies any suicidal ideations. Denies any homicidal ideations.. Patient normally goes to [place] for care. Was recently here on 09/19/2020 and had a psych evaluation at that time. [facility] Patient also follow-up also follows with Dr. Pierce. Patient has had frequent visits to emergency department for his mental health concerns, on of , , now [facility]. Review of Systems: Review of Systems: Constitutional: Denies fever or chills Eyes: Denies change in visual acuity HENT: Denies nasal congestion or sore throat Respiratory: Denies cough or shortness of breath Cardiovascular: Denies chest pain or edema GI: Denies abdominal pain, nausea, vomiting, bloody stools or diarrhea : Denies dysuria Musculoskeletal: Denies back pain or joint pain Integument: Denies rash Neurologic: Denies headache, focal weakness or sensory changes Endocrine: Denies polyuria or polydipsia Lymphatic: Denies swollen glands Psychiatric: History of depression, schizophrenia, bipolar, PTSD, delusions and paranoia believes, anxiety. Denies suicidal homicidal ideation Family History: Family History: Noncontributory to presentation Current Medications: Current Meds: See nursing for home meds Allergies: Allergies: Allergies Coded Allergies Type Severity Reaction Last Updated Verified allopurinol Allergy Unknown 09/25/20 Yes aripiprazole Allergy Unknown 09/25/20 Yes gabapentin Allergy Unknown 09/25/20 Yes haloperidol Allergy Unknown 09/25/20 Yes Physical Exam: PE: Constitutional: Moderate acute acute distress, non-toxic appearance. [] HENT: Normocephalic, atraumatic, bilateral external ears normal, oropharynx moist, no oral exudates, nose normal. [] Eyes: PERRLA, EOMI, conjunctiva normal, no discharge. [] Neck: Normal range of motion, no tenderness, supple, no stridor. [] Cardiovascular:Heart rate regular rhythm, no murmur [] Lungs & Thorax: Bilateral breath sounds equal apex on auscultation [] Abdomen: Bowel sounds normal, soft, no tenderness, no masses, no pulsatile masses. [] Skin: Warm, dry, no erythema, no rash. [] Back: No tenderness, no CVA tenderness. [] Extremities: No tenderness, no cyanosis, no clubbing, ROM intact, no edema. [] Neurologic: Alert and oriented X 3, moves all extremities as directed. Has distal sensory, no focal deficits noted. [] DTRs +2 patella brachial. Is amatory without problems. Psychologic: Affect anxious, judgement-questionable patient does have delusions of paranoia. Mood depressed about world events EKG: EKG: My interpretation EKG shows a sinus rhythm at 72 bpm. Does have a anterior fascicular block. Review of prior EKGs on file shows no acute morphology change. [] Radiology/Procedures: Radiology/Procedures: [] Heart Score: C/O Chest Pain: N/A HEART Score for Chest Pain: HEART Score for Chest Pain Response (Comments) Value History Slighlty/Non-Suspicious 0 ECG Normal 0 Age >45 - < 65 1 Risk Factors 1 or 2 Risk Factors 1 Troponin < Normal Limit 0 Total 2 Risk Factors: Risk Factors: DM, Current or recent (<one month) smoker, HTN, HLP, family history of CAD, obesity. Risk Scores: Score 0 - 3: 2.5% MACE over next 6 weeks - Discharge Home Score 4 - 6: 20.3% MACE over next 6 weeks - Admit for Clinical Observation Score 7 - 10: 72.7% MACE over next 6 weeks - Early Invasive Strategies Course & Med Decision Making: Course & Med Decision Making Pertinent Labs and Imaging studies reviewed. (See chart for details) Pt. currently declining any meds. See PAT report. See safety plan. Impression: 1. Paranoid delusions 2. History of schizophrenia 3. History of anxiety 4. History of PTSD 5. Tobacco and Marijuana use [] Dragon Disclaimer: Dragon Disclaimer: This electronic medical record was generated, in whole or in part, using a voice recognition dictation system. Departure Departure: Referrals: LEO PIERCE DO (PCP) [place] Disclaimer This chart was dictated in whole or in part using Voice Recognition software in a busy, high-work load, and often noisy Emergency Department environment. It may contain unintended and wholly unrecognized errors or omissions. Dragon Disclaimer This chart was dictated in whole or in part using Voice Recognition software in a busy, high-work load, and often noisy Emergency Department environment. It may contain unintended and wholly unrecognized errors or omissions. ANNABEL SHAHID MD Sep 25, 2020 23:22
[2020-09-25 23:42] LABS: BASO # 0.1 x10^3/uL (0.0-0.2); BASO % 1 % (0-3); EOS # 0.1 x10^3/uL (0.0-0.7); EOS % 1 % (0-3); HEMATOCRIT 37.9 % (39.0-53.0); HEMOGLOBIN 12.8 g/dL (13.0-17.5); LYMPH % 18 % (24-48); MEAN CORPUSCULAR HEMOGLOBIN 32 pg (25-35); MEAN CORPUSCULAR HGB CONC 34 g/dL (31-37); MEAN CORPUSCULAR VOLUME 95 fL (79-100); MONO # 0.8 x10^3/uL (0.0-1.1); MONO % 7 % (0-9); NEUT # 8.1 x10^3uL (1.8-7.7); NEUT % 73 % (31-73); PLATELET COUNT 240 x10^3/uL (140-400); RED BLOOD COUNT 3.98 x10^6/uL (4.30-5.70); RED CELL DISTRIBUTION WIDTH 14.3 % (11.5-14.5); WHITE BLOOD COUNT 11.2 x10^3/uL (4.0-11.0)
[2020-09-25 23:51] LABS: CALCIUM 8.9 mg/dL (8.5-10.1); CREATININE 0.9 mg/dL (0.7-1.3); GFR 84.2; POTASSIUM 3.5 mmol/L (3.5-5.1)
[2020-09-25 23:54] LABS: ETHANOL < 10 mg/dL (0-10); SALIC < 2.8 mg/dL (2.8-20.0)
[2020-09-26 00:04] LABS: ACETAMIN < 2.0 mcg/mL (10-30)
[2020-09-26 00:15] LABS: BARBITURATES NEG (NEG); BENZODIAZEPINES NEG (NEG); CANNABINOIDS POS (NEG); COCAINE NEG (NEG); METHADONE NEG (NEG); OPIATES NEG (NEG); PHENCYCLIDINE NEG (NEG)
[2020-09-26 00:16] LABS: BACTERIA,URINE 0 /HPF (0-FEW); BILIRUBIN,URINE NEG (NEG); CLARITY,URINE CLEAR; COLOR,URINE YELLOW; GLUCOSE,URINE NEG (NEG); NITRITE,URINE NEG (NEG); RBC,URINE 0 /HPF (0-2); SQUAMOUS EPITHELIAL CELL,UR OCC /LPF; UROBILINOGEN,URINE 0.2 mg/dL (0.2 mg/dL); WBC,URINE RARE /HPF (0-4)
[2020-09-26 00:18] LABS: AMPHETAMINE/METHAMPHETAMINE NEG (NEG)
--- NOTE | 2020-09-26 07:46 | EKG ---
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
== END 2020-09-26 01:01 | disposition home or self-care (01) ==
LOC: ER 23:04
DX: F20.0 Paranoid schizophrenia (principal); F41.9 Anxiety disorder, unspecified; F43.10 Post-traumatic stress disorder, unspecified; F17.210 Nicotine dependence, cigarettes, uncomplicated; F12.10 Cannabis abuse, uncomplicated; F31.9 Bipolar disorder, unspecified; Z88.8 Allergy status to other drugs, medicaments and biological substances
CPT/HCPCS: 36415; 80048; 80307; 80329; 81001; 84484; 85025; 93005; 99284; G0480

== ENCOUNTER → 2020-09-26 | Outpatient (CLI) | payer MEDICARE ==
[2020-09-25 23:11] VITALS: BP 122/78
--- NOTE | 2020-09-26 17:15 | RAD ---
XR CHEST 2V History: Reason: SHORT OF AIR, CONCERN FOR PNEUMONIA / Spl. Instructions: / History: Comparison: None. Technique: PA and lateral chest radiographs. Findings: The lungs are adequately and symmectrically inflated. No airspace consolidation, pleural effusion or pneumothorax. The cardiomediastinal silhoutte and pulmonary vasculature are within normal limits. Sof t tissues and osseous structures are unremarkable. Impression: 1. No acute cardiopulmonary process. Electronically signed by: Ruben Breen MD (09/26/2020 5:12 PM) [facility]
== END ==
LOC: RAD 16:50
PROVIDERS: ATTEND Nurse Practitioner Family
DX: R05 Cough (principal); R06.02 Shortness of breath
CPT/HCPCS: 71046